=== PATIENT | male | born 1960 | race Caucasian/White ===

== ENCOUNTER 2016-06-17 12:33 | Emergency (ER) | payer SELFPAY ==
[2016-06-17] MEDS ORDERED: Ketorolac Tromethamine 60 MG/2 ML VIAL ONE (13:06)
[2016-06-17] MEDS ORDERED: HYDROcodone/Acetaminophen 10/325 mg Tablet ONE (13:06)
== END 2016-06-17 13:46 | disposition home or self-care (01) ==
LOC: BURERS 12:33
DX: M54.41 Lumbago with sciatica, right side (principal); I10 Essential (primary) hypertension; F41.9 Anxiety disorder, unspecified; F17.210 Nicotine dependence, cigarettes, uncomplicated; Z79.899 Other long term (current) drug therapy; X50.9XXA Other and unspecified overexertion or strenuous movements or postures, initial encounter
CPT/HCPCS: 96372; J1885

== ENCOUNTER 2016-10-10 07:42 | Emergency (ER) | payer SELFPAY ==
[2016-10-10] MEDS ORDERED: HYDROcodone/Acetaminophen 10/325 mg Tablet ONE (08:08)
[2016-10-10] MEDS ORDERED: Ibuprofen 800 MG TAB ONE (08:08)
[2016-10-10] MEDS ORDERED: AMOXicillin 250 MG CAP ONE (08:08)
== END 2016-10-10 08:12 | disposition home or self-care (01) ==
LOC: BURERS 07:42
DX: K04.7 Periapical abscess without sinus (principal); I10 Essential (primary) hypertension; F41.9 Anxiety disorder, unspecified; F17.210 Nicotine dependence, cigarettes, uncomplicated
CPT/HCPCS: 99283

== ENCOUNTER 2017-06-27 07:25 | Emergency (ER) | payer SELFPAY ==
[2017-06-27] MEDS ORDERED: Morphine 4 MG/ML Carpuject ONE (07:46)
== END 2017-06-27 08:26 | disposition home or self-care (01) ==
LOC: BURERS 07:25
DX: M54.42 Lumbago with sciatica, left side (principal); F17.210 Nicotine dependence, cigarettes, uncomplicated; I10 Essential (primary) hypertension
CPT/HCPCS: 96372; J2270

== ENCOUNTER 2017-11-02 08:21 | Emergency (ER) | payer OTHER, SELFPAY ==
--- NOTE | 2017-11-02 09:13 | RAD ---
RIGHT SHOULDER 3 VIEW SERIES: INDICATION: Injury, pain. FINDINGS: There is mild degenerative change without fracture or dislocation. The imaged right lung reveals no lobar consolidation. There is a punctate density superiorly within the right hemithorax that may rel ate to granulomatous calcification. IMPRESSION: No acute osseous abnormality of the right shoulder. POS: [facility]
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
== END 2017-11-02 09:03 | disposition home or self-care (01) ==
LOC: BURERS 08:21
DX: S43.401A Unspecified sprain of right shoulder joint, initial encounter (principal); S23.41XA Sprain of ribs, initial encounter; I10 Essential (primary) hypertension; F17.210 Nicotine dependence, cigarettes, uncomplicated; Z79.899 Other long term (current) drug therapy; W22.8XXA Striking against or struck by other objects, initial encounter

== ENCOUNTER 2017-11-29 15:56 | Outpatient (CLI) | payer OTHER ==
--- NOTE | 2017-11-29 20:25 | RAD ---
LUMBAR SPINE THREE VIEWS: 11/29/17 Comparison is made with a 08/29/07 study. No fracture, significant disc space narrowing or other acute change was seen. There is a mild anterol isthesis of L5 on S1. It was present before but seems a little more prominent today. This is probably due to facet arthritis here. I cannot confirm spondylolysis. Small osteophytes are seen elsewhere. T he SI joints are symmetrical. Overall, the appearance of the spine very similar to the 2007 study exc ept for the anterolisthesis being minimally more prominent. IMPRESSION: No acute findings. Chronic changes as noted above. POS: [facility]
== END 2017-11-29 15:57 | disposition home or self-care (01) ==
LOC: BURRAD 15:56
PROVIDERS: ATTEND Family Medicine
DX: M54.32 Sciatica, left side (principal); M43.17 Spondylolisthesis, lumbosacral region; M25.78 Osteophyte, vertebrae; M48.061 Spinal stenosis, lumbar region without neurogenic claudication
CPT/HCPCS: 72100

== ENCOUNTER 2021-05-13 09:23 | Emergency (ER) | payer SELFPAY ==
[2021-05-13] MEDS ORDERED: HYDROcodone/Acetaminophen 5/325 mg Tablet ONE (09:55)
[2021-05-13] MEDS ORDERED: Aspirin Chewable 81 MG TAB ONE (09:55)
[2021-05-13 10:10] LABS: Hemoglobin 15.8 g/dL (14.0-18.0); Mean Corpuscular Hemoglobin 32.4 pg (27.0-31.0); Mean Corpuscular Volume 96.3 fL (78.0-98.0); Red Blood Cell (RBC) Count 4.86 mill/uL (4.70-6.10); White Blood Cell (WBC) Count 10.6 thou/uL (4.8-10.8)
[2021-05-13 10:11] LABS: Mean Corpuscular HGB CONC 33.6 g/dL (32.0-36.0); Mean Platelet Volume 6.9 fL (7.4-10.4); Platelet Count 385 thou/uL (130-400); RBC Distribution Width 12.9 % (11.5-14.5)
[2021-05-13 10:24] LABS: ALT (SGPT) 25 U/L (8-55); AST (SGOT) 32 U/L (5-34); Albumin 3.9 g/dL (3.4-4.8); Alkaline Phosphatase 110 U/L (40-110); Anion Gap 15 mmol/L (10-20); BUN (Urea Nitrogen) 10 mg/dL (8.4-25.7); Bilirubin, Total 0.7 mg/dL (0.2-1.2); Calc. Creatinine Clearance 0 mL/min (70-130); Calcium 9.4 mg/dL (7.8-10.44); Carbon Dioxide 28 mmol/L (23-31); Chloride 103 mmol/L (98-107); Globulin 2.8 g/dL (2.4-3.5); Glucose 108 mg/dL (80-115); Potassium 4.6 mmol/L (3.5-5.1); Protein, Total 6.7 g/dL (5.8-8.1); Sodium 141 mmol/L (136-145)
[2021-05-13 10:27] LABS: Band 7 % (5-11); Eosinophils 1 % (0-10); Lymphocytes 5 % (21-51); MDiff Complete? YES; Monocytes 7 % (0-10); Neutrophil 77 % (42-75); Reactive Lymphocytes 3 % (0-10)
== END 2021-05-13 11:49 | disposition home or self-care (01) ==
LOC: BURERS 09:23
DX: S20.211A Contusion of right front wall of thorax, initial encounter (principal); W22.8XXA Striking against or struck by other objects, initial encounter; I10 Essential (primary) hypertension; F17.210 Nicotine dependence, cigarettes, uncomplicated; Z79.899 Other long term (current) drug therapy
CPT/HCPCS: 36415; 71045; 80053; 83880; 84484; 85025; 93005

== ENCOUNTER 2022-01-27 12:23 | Emergency (ER) | payer SELFPAY ==
[2022-01-27] MEDS ORDERED: Clindamycin 150 MG CAP ONE (12:56)
== END 2022-01-27 13:03 | disposition home or self-care (01) ==
LOC: BURERS 12:23
DX: L03.317 Cellulitis of buttock (principal); I10 Essential (primary) hypertension; F17.210 Nicotine dependence, cigarettes, uncomplicated
CPT/HCPCS: 99283

== ENCOUNTER 2022-04-08 18:15 | Emergency (ER) | payer OTHER, SELFPAY ==
[~2022-04-08 18:15] MED LIST: Iopamidol 370 76% 100 ML VIAL ONE
[2022-04-08] MEDS ORDERED: HYDROmorphone 0.5 MG/0.5 ML SYRINGE ONE (18:37)
[2022-04-08] MEDS ORDERED: Ondansetron PF 4 MG/2 ML Vial ONE (18:37)
[2022-04-08 18:42] LABS: #Basophils 0.1 thou/uL (0.0-0.2); #Eosinphils 0.3 thou/uL (0.0-0.7); #Lymphocytes 2.2 thou/uL (1.20-3.40); #Monocytes 0.7 thou/uL (0.11-0.59); #Neutrophils 6.1 thou/uL (1.40-6.50); %Basophils 1.2 % (0.0-1.0); %Eosinophils 3.6 % (0.0-10.0); %Lymphocytes 22.9 % (21.0-51.0); %Monocytes 7.6 % (0.0-10.0); %Neutrophils 64.7 % (42.0-75.0); Hemoglobin 15.3 g/dL (14.0-18.0); Mean Corpuscular HGB CONC 34.2 g/dL (32.0-36.0); Mean Corpuscular Hemoglobin 33.2 pg (27.0-31.0); Mean Corpuscular Volume 96.9 fl (78.0-98.0); Platelet Count 331 10x3/uL (130-400); RBC Distribution Width 13.2 % (11.5-14.5); Red Blood Cell (RBC) Count 4.62 mill/uL (4.70-6.10); White Blood Cell (WBC) Count 9.5 10x3/uL (4.8-10.8)
[2022-04-08 18:55] LABS: Bilirubin Negative (Negative); Blood, Urine Negative (Negative); Clarity Clear (Clear); Glucose, Urine (Dipstick) Negative (Negative); Ketone, Urine Negative (Negative); Leukocyte Negative (Negative); Nitrite Negative (Negative); Protein, Urine (Dipstick) Negative (Neg-Trace); Urobilinogen 0.2 mg/dL (Less than 2)
[2022-04-08 19:01] LABS: ALT (SGPT) 26 U/L (8-55); AST (SGOT) 37 U/L (5-34); Acetaminophen Less than 10.0 mcg/mL (10.0-30.0); Albumin 4.1 g/dL (3.4-4.8); Alcohol 87 mg/dL (Less than 10); Alkaline Phosphatase 112 U/L (40-110); Anion Gap 13 mmol/L (10-20); BUN (Urea Nitrogen) 9 mg/dL (8.4-25.7); Bilirubin, Total 0.4 mg/dL (0.2-1.2); Calc. Creatinine Clearance 0 mL/min (70-130); Calcium 9.3 mg/dL (7.8-10.44); Carbon Dioxide 25 mmol/L (23-31); Chloride 100 mmol/L (98-107); Estimated GFR 101; Globulin 2.8 g/dL (2.4-3.5); Glucose 71 mg/dL (80-115); Potassium 3.9 mmol/L (3.5-5.1); Protein, Total 6.9 g/dL (5.8-8.1); Salicylate Less than 8.0 mg/dL (15.0-30.0); Sodium 134 mmol/L (136-145)
[2022-04-08 19:07] LABS: Amphetamine Not Detected (NotDetected); Barbiturates Screen Not Detected (NotDetected); Benzodiazepine Screen Not Detected (NotDetected); Cocaine Metabolite Screen Not Detected (NotDetected); Medtox Control Line Valid? VALID (VALID); Methadone Not Detected (NotDetected); Methamphetamine Not Detected (NotDetected); Opiate Screen Not Detected (NotDetected); Oxycodone Screen Not Detected (NotDetected); Phencyclidine (PCP) Not Detected (NotDetected); THC/Cannabinoid Screen Not Detected (NotDetected); Tricyclic Screen Not Detected (NotDetected)
== END 2022-04-08 20:22 | disposition home or self-care (01) ==
LOC: BURERS 18:15
DX: M54.50 Low back pain, unspecified (principal); F10.129 Alcohol abuse with intoxication, unspecified; I10 Essential (primary) hypertension; F17.210 Nicotine dependence, cigarettes, uncomplicated
CPT/HCPCS: 70450; 71260; 72125; 74177; 80053; 80306; 80307; 81003; 83605; 85025; 96374; 96375; J1170; J2405; Q9967

== ENCOUNTER 2022-05-01 15:21 | Emergency (ER) | payer OTHER, SELFPAY ==
[2022-05-01] MEDS ORDERED: AMOXicillin 250 MG CAP ONE (16:35)
[2022-05-01] MEDS ORDERED: Dexamethasone 4 MG TAB ONE (16:35)
== END 2022-05-01 16:39 | disposition home or self-care (01) ==
LOC: BURERS 15:21
DX: J06.9 Acute upper respiratory infection, unspecified (principal); I10 Essential (primary) hypertension; F17.210 Nicotine dependence, cigarettes, uncomplicated; Z79.899 Other long term (current) drug therapy; Z20.822 Contact with and (suspected) exposure to COVID-19
CPT/HCPCS: 87804; 99283; J8540; U0003; U0005

== ENCOUNTER 2023-09-16 23:48 | Emergency (ER) | payer OTHER ==
[2023-09-17] MEDS ORDERED: methylPREDNISolone Sod Succ/PF 125 MG/2 ML VIAL ONE (00:24)
== END 2023-09-17 00:34 | disposition home or self-care (01) ==
LOC: BURERS 23:48
DX: L25.9 Unspecified contact dermatitis, unspecified cause (principal); I10 Essential (primary) hypertension; F17.210 Nicotine dependence, cigarettes, uncomplicated; Z79.899 Other long term (current) drug therapy
CPT/HCPCS: 96372; 99282; J2930

== ENCOUNTER 2024-04-17 04:40 | Emergency (ER) | payer MEDICARE ==
[2024-04-17] MEDS ORDERED: Lidocaine 1% PF 5 ML VIAL ONE (04:59)
[2024-04-17] MEDS ORDERED: Bacitracin 1 PK ONE (05:31)
== END 2024-04-17 05:45 | disposition home or self-care (01) ==
LOC: BURERS 04:40
DX: S91.111A Laceration without foreign body of right great toe without damage to nail, initial encounter (principal); I10 Essential (primary) hypertension; F17.210 Nicotine dependence, cigarettes, uncomplicated; W26.8XXA Contact with other sharp object(s), not elsewhere classified, initial encounter
CPT/HCPCS: 12001; 99282

== ENCOUNTER 2024-06-09 14:52 | Emergency (ER) | payer MEDICARE ==
[2024-06-09] MEDS ORDERED: Sodium Chloride 0.9% 100 ML ONE (15:07)
[2024-06-09] MEDS ORDERED: cefTRIAXone (ROCEPHIN) 1 GM VIAL ONE (15:07)
[2024-06-09 15:16] LABS: Hematocrit 42.3 % (42.0-52.0); Hemoglobin 14.6 g/dL (14.0-18.0); Mean Corpuscular HGB CONC 34.5 g/dL (32.0-36.0); Mean Corpuscular Hemoglobin 29.3 pg (27.0-31.0); Mean Platelet Volume 7.4 fL (7.4-10.4); Platelet Count 349 10x3/uL (130-400); RBC Distribution Width 11.9 % (11.5-14.5); Red Blood Cell (RBC) Count 4.97 mill/uL (4.70-6.10); White Blood Cell (WBC) Count 25.1 10x3/uL (4.8-10.8)
[2024-06-09 15:30] LABS: ALT (SGPT) 16 U/L (Less than 45); AST (SGOT) 22 U/L (11-34); Albumin 3.1 g/dL (3.1-4.5); Alkaline Phosphatase 149 U/L (40-110); Anion Gap 15 mmol/L (10-20); BUN (Urea Nitrogen) 13 mg/dL (8.4-25.7); Bilirubin, Total 0.8 mg/dL (0.3-1.2); Calc. Creatinine Clearance 0 mL/min (70-130); Carbon Dioxide 24 mmol/L (23-31); Chloride 102 mmol/L (98-107); Estimated GFR 103; Globulin 3.6 g/dL (2.4-3.5); Glucose 100 mg/dL (80-115); Potassium 3.6 mmol/L (3.5-5.1); Protein, Total 6.7 g/dL (5.8-8.1); Sodium 137 mmol/L (136-145); Troponin I Less than 0.010 ng/mL (< 0.028)
[2024-06-09 16:00] LABS: Band 1 % (5-11); Eosinophils 3 % (0-10); Lymphocytes 10 % (21-51); MDiff Complete? YES; Monocytes 8 % (0-10); Neutrophil 78 % (42-75)
[2024-06-09] MEDS ORDERED: Morphine 4 MG/ML VIAL ONE (16:40)
[2024-06-09] MEDS ORDERED: Clindamycin/D5W 600 mg/50 ml Premix Bag ONE (16:46)
== END 2024-06-09 17:22 | disposition short-term general hospital (02) ==
LOC: BURERS 14:52
DX: L03.116 Cellulitis of left lower limb (principal); L03.115 Cellulitis of right lower limb; I10 Essential (primary) hypertension; F17.210 Nicotine dependence, cigarettes, uncomplicated; Z79.899 Other long term (current) drug therapy
CPT/HCPCS: 73564; 80053; 83605; 83880; 84484; 85025; 87040; 93005; J0696; J2270; J3490; 36415; 96365; 96367; 96375

== ENCOUNTER 2025-01-30 01:29 | Emergency (ER) | payer MEDICARE, SELFPAY ==
[2025-01-30] MEDS ORDERED: Ketorolac Tromethamine 30 MG (1 mL) VIAL ONE (01:46)
[2025-01-30 02:37] LABS: Glucose, Urine (Dipstick) Negative (Negative); Leukocyte Small (Negative); Protein, Urine (Dipstick) > or equal to 300 mg/dL (Neg-Trace); Specific Gravity, Urine Greater/Equal 1.030 (1.005-1.030)
[2025-01-30 02:44] LABS: CAUTI Indications for Culture Pelvic or flank pain; WBC/HPF Greater Than 50 HPF (0-3)
[2025-01-30 02:45] LABS: Bacteria/HPF 1+ HPF (None Seen); Oval Fat Bodies/HPF Rare HPF (None Seen); RBC/HPF Greater than 50 HPF (0-3)
[2025-01-30 02:46] LABS: Urine Culture Reflex Yes Yes
== END 2025-01-30 02:55 | disposition home or self-care (01) ==
LOC: BURERS 01:29
DX: N39.0 Urinary tract infection, site not specified (principal); I10 Essential (primary) hypertension; F17.210 Nicotine dependence, cigarettes, uncomplicated; Z79.899 Other long term (current) drug therapy
CPT/HCPCS: 81001; 87086; J1885